=== PATIENT | male | born 1945 | race Caucasian/White ===

== ENCOUNTER → 2016-09-27 | Outpatient (CLI) | payer MEDICARE ==
--- NOTE | 2016-09-27 11:22 | US ---
EXAMINATION TYPE: US thyroid st tissue head/neck DATE OF EXAM: 09/27/2016 COMPARISON: Thyroid ultrasound February 01, 2016. CLINICAL HISTORY: E04.1 Thyroid Nodule. GLAND SIZE: Right Lobe: 7.5 x 3.8 x 3.0 cm Overall Parenchyma: heterogenous Left Lobe: 5.6 x 3.4 x 2.7 cm Overall Parenchyma: heterogeneous Isthmus Thickness: 2.1 cm NODULES RIGHT: # of nodules measured on right: 2 1. 4.9 X 2.7 x 1.8 cm hypoechoic mixed nodule at the lower pole with well-defined margins. This no dule is wider than tall and shows intranodular vascularity. Prior size: 4.6 x 2.2 x 4.6 cm 2. 3.3 X 2.7 x 1.7 cm echogenic mixed nodule at the mid pole with well-defined margins. This nodule is wider than tall and shows no intranodular vascularity. Prior size: 3.0 x 1.9 x 2.4 cm LEFT: # of nodules measured on left: 1 1. 3.0 X 2.6 x 2.3 cm hypoechoic mixed nodule at the lower pole with margins. This nodule is wider than tall and shows no intranodular vascularity. Prior size: 2.7 x 1.7 x 2.5 cm ISTHMUS: # of nodules measured in the isthmus: 0 Bilateral neck scanned, no evidence of lymphadenopathy. Thyroid gland remains enlarged in size and heterogeneous in appearance with large nodules redemonstra roxy bilaterally. No new nodules are seen on today's study. IMPRESSION: Findings consistent with multinodular goiter redemonstrated as there is an enlarged heterogeneous mul tinodular thyroid gland redemonstrated without suspicious new nodules identified.
== END | disposition home or self-care (01) ==
LOC: RADUSWWP 10:03
PROVIDERS: ATTEND Otolaryngology
DX: E04.2 Nontoxic multinodular goiter (principal)
CPT/HCPCS: 76536

== ENCOUNTER → 2017-03-13 | Outpatient (CLI) | payer MEDICARE ==
--- NOTE | 2017-03-13 17:18 | US ---
EXAMINATION TYPE: US thyroid st tissue head/neck DATE OF EXAM: 03/13/2017 COMPARISON: 09/27/2016 CLINICAL HISTORY: E04.1 Thyroid nodule. GLAND SIZE: Right Lobe6.6 x 3.1 x 2.1 cm Overall Parenchyma: heterogenous Left Lobe: 4.7 x 3.2 x 2.2 cm Overall Parenchyma: heterogeneous Isthmus Thickness: 2.1 cm NODULES RIGHT: # of nodules measured on right: 2 1. 3.7 X 5.0 x 2.3 cm hypoechoic mixed nodule at the lower pole with well-defined margins and exten ds over isthmus. This nodule is wider than tall and shows intranodular vascularity. Prior size: 4.9 x 2.7 x 1.8 cm 2. 3.3 X 2.3 x 2.3 cm isoechoic mixed nodule at the mid pole with well-defined margins. This nodule is taller than wide and shows no intranodular vascularity. Prior size: 3.3 x 2.7 x 1.7 cm LEFT: # of nodules measured on left: 1 1. 2.6 X 2.5 x 2.2 cm hypoechoic mixed nodule at the lower pole with well-defined margins. This no dule is taller than wide and shows no intranodular vascularity. Prior size: 3.0 x 2.6 x 2.3 cm ISTHMUS: # of nodules measured in the isthmus: 0 Bilateral neck scanned, no evidence of lymphadenopathy. Bilateral enlarged thyroid lobes. IMPRESSION: There is evidence of multinodular goiter with no adverse change compared to old exam. No dominant thy roid mass.
== END | disposition home or self-care (01) ==
LOC: RADUSWWP 16:40
PROVIDERS: ATTEND Otolaryngology
DX: E04.1 Nontoxic single thyroid nodule (principal)
CPT/HCPCS: 76536

== ENCOUNTER → 2017-09-20 | Outpatient (CLI) | payer MEDICARE ==
--- NOTE | 2017-09-21 08:26 | US ---
EXAMINATION TYPE: US thyroid st tissue head/neck DATE OF EXAM: 09/20/2017 COMPARISON: 03/13/2017 CLINICAL HISTORY: E04.1 THYROID NODULE. GLAND SIZE: Right Lobe: 4.4 x 1.7 x 2.6 cm Overall Parenchyma: heterogenous Left Lobe: 4.9 x 2.5 x 2.1 cm Overall Parenchyma: heterogeneous Isthmus Thickness: 0.4 cm NODULES RIGHT: # of nodules measured on right: 3 1. 5.2 X 1.9 x 2.0 cm echogenic solid nodule at the lower pole with well-defined margins. This nodu le is wider than tall and shows no intranodular vascularity. Prior size: 3.7 x 5.0 x 2.3 cm 2. 2.5 X 3.0 x 3.6 cm echogenic solid nodule at the mid pole with well-defined margins; . This nodu le is wider than tall and shows intranodular vascularity. Prior size: 3.3 x 2.3 x 2.3 cm 3. 2.6 X 1.7 x 2.9 cm echogenic mixed nodule at the mid/lateral pole with well-defined margins. Thi s nodule is wider than tall and shows intranodular vascularity. Prior size: no prior LEFT: # of nodules measured on left: 1 1. 2.1 X 2.8 x 1.9 cm echogenic mixed nodule at the mid pole with well-defined margins; . This nodu le is wider than tall and shows intranodular vascularity. Prior size: 2.6 x 2.5 x 2.2 cm ISTHMUS: # of nodules measured in the isthmus: 0 Bilateral neck scanned, no evidence of lymphadenopathy. IMPRESSION: 1. There is an enlarging nodule at the lower pole right lobe thyroid. Additionally there is a new nod ule within the mid lateral right lobe thyroid.
== END | disposition home or self-care (01) ==
LOC: RADUSWWP 15:19
PROVIDERS: ATTEND Otolaryngology
DX: E04.2 Nontoxic multinodular goiter (principal)
CPT/HCPCS: 76536

== ENCOUNTER 2017-10-29 12:06 | Day surgery (SDC) | payer MEDICARE ==
[2017-10-29 12:55] VITALS: TEMP 98
[2017-10-29 13:02] LABS: INR 1.2 (<1.2); Prothrombin Time 11.7 sec (9.0-12.0)
[2017-10-29 13:40] VITALS: RESP 18
[2017-10-29 14:30] VITALS: BP 144/76; PULSE 76
--- NOTE | 2017-10-29 14:38 | US ---
ULTRASOUND GUIDED FNA THYROID BIOPSY: CLINICAL HISTORY: Right thyroid nodule FINDINGS: The procedure was explained to the patient. The risks, complications, benefits and alternatives were discussed and any questions were answered. Informed consent was obtained. Patient was placed supin e on the ultrasound table and prepped and draped in the usual sterile fashion. Utilizing a 25 gauge needle, five passes were made into the requested right thyroid nodule. Patient was stable throughout the procedure. Pathology is pending. All elements of maximal barrier technique were utilized. IMPRESSION: 1. Successful ultrasound guided FNA thyroid biopsy.
== END 2017-10-29 14:05 | disposition home or self-care (01) ==
LOC: RADPROMAIN 12:06
PROVIDERS: ATTEND Otolaryngology
DX: E04.1 Nontoxic single thyroid nodule (principal)
CPT/HCPCS: 10022; 36415; 76942; 85610; 88173; 88305

== ENCOUNTER → 2017-11-22 | Outpatient (CLI) | payer MEDICARE ==
--- NOTE | 2017-11-22 12:24 | PN ---
PROGRESS NOTE DATE OF SERVICE: 11/22/2017 A 72-year-old gentleman has been followed in Sleep Center for treatment of obstructive and central sleep apnea-hypopnea syndrome. Patient continued to use his CPAP equipment every night and sleeps better with the machine then without machine. [place] Sleepiness Scale today is 10. I checked CPAP unit. It is in automatic regimen 5-20 cm of water. Most of the time pressure is 13.6 cm of water. Apnea-hypopnea index 12.3 with a central apnea index 4.5. Leak is 14.5 L/minute which is acceptable. MEDICATIONS: Atenolol, Lipitor, Coumadin, Pepcid, Symbicort, Singulair, baby aspirin, Nitrostat on p.r.n. basis for chest pain. PHYSICAL EXAM: Patient in no distress. BP 159/89, HR 62, RR 16, height 5, 10-1/2, weight 275, BMI 31.8, temperature 97.7, oxygen saturation at room air 97%. OROPHARYNX: Low position of soft palate. HEART: S1, S2, irregularly, irregular. EXTREMITIES: 1+ ankle edema. Neck Supple, no JVD. Thyroid is not palpable. LUNGS Clear to percussion and to auscultation. Good air exchange. No wheezing or rhonchi. ABDOMEN Soft and nontender. Bowel sounds are present. No organomegaly appreciated. DISTRIBUTION OPERATION SUPERVISOR Awake, alert, and oriented X3. Cranial nerves 2 to 7 intact. There is no fasciculation or atrophy. noted. No focal deficits observed. IMPRESSION: 1. Obstructive and central sleep apnea-hypopnea syndrome. Patient demonstrated 100% compliance with treatment 30/30 nights more than 4 hours every 7.3 hours. He still has some problem with breathing by reading from the machine. 2. Atrial fibrillation. 3. Coronary artery disease, status post stent insertion. 4. Benign prostatic hypertrophy. 5. Asthma. 6. Right knee problems. Patient is preparing for total right knee replacement. PLAN: 1. Repeat CPAP and switching to BiPAP titration if necessary, ST mode for shorter ventilation. 2. Sleep hygiene with regular time for at least 8 hours. 3. No driving if feeling any sleepiness. 4. Continue usage of the CPAP at the present time. Thank you very much for allowing me to participate in management of your patient. Sincerely, Ottoniel Morgan MD, PhD, FAASM Diplomat of [place] [employer] [employer] Hard Hat Diver [facility] [place] [id number] / KAILEE: [id number] /
== END | disposition home or self-care (01) ==
LOC: SLEEP 10:14
PROVIDERS: ATTEND Internal Medicine
DX: G47.33 Obstructive sleep apnea (adult) (pediatric) (principal); G47.31 Primary central sleep apnea; I48.91 Unspecified atrial fibrillation; I25.10 Atherosclerotic heart disease of native coronary artery without angina pectoris; N40.0 Benign prostatic hyperplasia without lower urinary tract symptoms; J45.909 Unspecified asthma, uncomplicated; M25.861 Other specified joint disorders, right knee; Z95.5 Presence of coronary angioplasty implant and graft; Z79.899 Other long term (current) drug therapy; Z79.51 Long term (current) use of inhaled steroids; Z79.01 Long term (current) use of anticoagulants; Z99.89 Dependence on other enabling machines and devices; Z79.82 Long term (current) use of aspirin

== ENCOUNTER → 2018-01-31 | Outpatient (CLI) | payer MEDICARE ==
--- NOTE | 2018-01-31 18:55 | SFUN ---
SLEEP CENTER FOLLOW UP NOTE DATE OF SERVICE: 01/31/2018. HISTORY: A 72-year-old gentleman who has been followed in Sleep Center for treatment of obstructive sleep apnea-hypopnea syndrome. After BiPAP titration, about 1 month ago, patient was started on treatment with BiPAP. This is his first visit on that treatment. The patient likes his new machine, sleeps better, with no sleepiness during the day. [place] Sleepiness Scale is 6. I checked his BiPAP unit. Usage is 100% of the time, more than 4 hours per night. Average amount of sleep 9 hours. Pressure is 12/8 cm of water like it was recommended. Apnea-hypopnea index 7.4. Leak is 11 L/minute which is acceptable. Recently the patient had total right knee replacement. MEDICATIONS: 1. Atenolol. 2. Lipitor. 3. Coumadin. 4. Pepcid. 5. Symbicort. 6. Singulair. 7. Baby aspirin. 8. Nitrostat. PHYSICAL EXAM: Patient is in no distress. BP 124/67, HR 92, RR 16, weight 216, temp 98.2, oxygen saturation room air 96%. HEENT: Oropharynx low position of soft palate. HEART: S1, S2 irregularly irregular. ABDOMEN: Obese. EXTREMITIES: No edema. IMPRESSION: 1. Obstructive sleep apnea-hypopnea syndrome. The patient demonstrated 100% compliance with treatment benefitting from treatment. 2. Obesity. 3. Arterial fibrillation. 4. Status post recent total right knee replacement. 5. Coronary artery disease, status post stent insertion. 6. Benign prostatic hypertrophy. 7. History of asthma. PLAN: 1. BiPAP pressure. I increased but BiPAP pressure to 14/10 cm of water. 2. The patient will continue to use BiPAP equipment every night. 3. Losing weight. 4. Sleep hygiene with regular time in bed for at least 8 hours. 5. No driving if feeling sleepiness. Thank you very much for allowing me to participate in management of your patient. MMODL / IJN: [id number] /
== END | disposition home or self-care (01) ==
LOC: SLEEP 15:58
PROVIDERS: ATTEND Internal Medicine
DX: G47.33 Obstructive sleep apnea (adult) (pediatric) (principal); E66.9 Obesity, unspecified; I48.91 Unspecified atrial fibrillation; I25.10 Atherosclerotic heart disease of native coronary artery without angina pectoris; N40.0 Benign prostatic hyperplasia without lower urinary tract symptoms; J45.909 Unspecified asthma, uncomplicated; Z96.651 Presence of right artificial knee joint; Z79.899 Other long term (current) drug therapy; Z79.01 Long term (current) use of anticoagulants; Z79.82 Long term (current) use of aspirin; Z95.5 Presence of coronary angioplasty implant and graft

== ENCOUNTER → 2018-02-05 | Outpatient (CLI) | payer MEDICARE ==
--- NOTE | 2018-02-05 08:59 | US ---
EXAMINATION TYPE: US thyroid st tissue head/neck DATE OF EXAM: 02/05/2018 COMPARISON: US CLINICAL HISTORY: E04.1 Thyroid Nodules. GLAND SIZE: Right Lobe: 7.5 x 4.5 x 3.0 cm Overall Parenchyma: heterogenous Left Lobe: 5.4 x 2.8 x 2.9 cm Overall Parenchyma: heterogeneous Isthmus Thickness: 0.8 cm NODULES RIGHT: # of nodules measured on right: 2 1. 5.2 X 3.6 x 2.7 cm hypoechoic primarily solid nodule at the lower pole with well-defined margins ; present with microcalcification. This nodule is wider than tall and shows intranodular vascularity . Prior size: 5.2 x 5.0 x 2.3 cm 2. 3.1 X 2.4 x 1.7 cm isoechoic mixed nodule at the mid pole with well-defined margins. This nodule is wider than tall and shows intranodular vascularity. Prior size: 2.6 x 1.7 x 2.9 cm Comment: third solid nodule was not identified, but may be part of consolidation with nodule #1 LEFT: # of nodules measured on left: 1 1. 3.2 X 2.5 x 2.7 cm hypoechoic mixed nodule at the mid/lower pole with well-defined margins. Thi s nodule is taller than wide and shows intranodular vascularity. Prior size: 2.1 x 2.8 x 1.9 cm ISTHMUS: # of nodules measured in the isthmus: 0 Bilateral neck scanned: no evidence of lymphadenopathy. There is redemonstration of heterogeneous enlarged thyroid with bilateral nodules not significantly c hanged in size or appearance from prior accounting for technical differences. No new definitive great er than 1 cm nodule seen. IMPRESSION: Overall stable findings, heterogeneous enlarged thyroid with stable bilateral large nodules, no new s uspicious greater than 1 cm nodules identified.
== END | disposition home or self-care (01) ==
LOC: RADUSWWP 08:00
PROVIDERS: ATTEND Otolaryngology
DX: E04.2 Nontoxic multinodular goiter (principal)
CPT/HCPCS: 76536

== ENCOUNTER → 2018-09-17 | Outpatient (CLI) | payer MEDICARE ==
--- NOTE | 2018-09-17 15:20 | US ---
EXAMINATION TYPE: US thyroid st tissue head/neck DATE OF EXAM: 09/17/2018 COMPARISON: US CLINICAL HISTORY: E04.1 Thyroid nodule. GLAND SIZE: Right Lobe: 7.9 x 5.8 x 3.6 cm Overall Parenchyma: heterogenous Left Lobe: 6.0 x 3.1 x 2.6 cm Overall Parenchyma: heterogeneous Isthmus Thickness: 2.7 cm NODULES RIGHT: # of nodules measured on right: 3 1. 4.1 X 2.5 x 2.8 cm hypoechoic solid nodule at the lower pole with well-defined margins; present with microcalcification centrally. This nodule is wider than tall and shows intranodular vascularity . Prior size: 5.2 x 3.6 x 2.7 cm 2. 3.6 X 4.6 x 2.0 cm isoechoic mixed nodule at the mid pole with well-defined margins. This nodule is wider than tall and shows intranodular vascularity. Prior size: 3.1 x 2.4 x 1.7 cm 3. 0.4 X 0.4 x 0.3 cm hypoechoic mixed nodule at the upper pole with well-defined margins. This nod ule is wider than tall and shows no intranodular vascularity. Prior size: none measured LEFT: # of nodules measured on left: 1. 3.4 X 2.7 x 2.7 cm hypoechoic mixed nodule at the lower pole with well-defined margins. This no dule is wider as is tall and shows intranodular vascularity. Prior size: 3.2 x 2.5 x 2.7 cm ISTHMUS: # of nodules measured in the isthmus: 0 Bilateral neck scanned: no evidence of lymphadenopathy. Enlarged thyroid gland noted bilaterally. IMPRESSION: Interval growth of a previously biopsied right midpole thyroid nodule. Very minimal interval growth o f the most dominant left thyroid nodule and smaller size of the second largest right thyroid nodule i n this multinodular goiter. Consideration could be given to fine-needle aspiration of the dominant le ft thyroid nodule or continued surveillance.
== END | disposition home or self-care (01) ==
LOC: RADUSWWP 14:23
PROVIDERS: ATTEND Otolaryngology
DX: E04.2 Nontoxic multinodular goiter (principal)
CPT/HCPCS: 76536

== ENCOUNTER → 2019-01-13 | Outpatient (CLI) | payer MEDICARE ==
--- NOTE | 2019-01-13 15:39 | US ---
EXAMINATION TYPE: US thyroid st tissue head/neck DATE OF EXAM: 01/13/2019 COMPARISON: 09/17/2018 CLINICAL HISTORY: 73-year-old male E04.1 Thyroid Nodule . No thyroid meds. TECHNIQUE: Multiple sonographic images of the thyroid gland are obtained. FINDINGS: GLAND SIZE: Right Lobe: 7.1 x 3.3 x 3.0 cm Overall Parenchyma: heterogenous Left Lobe: 5.2 x 3.0 x 2.5 cm Overall Parenchyma: heterogeneous Isthmus Thickness: 1.0 cm NODULES RIGHT: # of nodules measured on right: 3 1. 4.1 X 4.0 x 2.2 cm hypoechoic nodule at the lower pole with well-defined margins. This nodule i s wider than tall and shows intranodular vascularity. Prior size: 4.1 x 4.6 x 2.8 cm 2. 3.5 X 2.4 x 2.3 cm mixed nodule at the mid pole with well-defined margins. This nodule is wider than tall and shows intranodular vascularity. Prior size: 3.6 x 2.5 x 2.0 cm 3. 0.5 X 0.3 x 0.3 cm mixed nodule at the upper pole with well-defined margins. This nodule is wide as tall and shows no intranodular vascularity. Prior size: 0.4 x 0.4 x 0.3 cm LEFT: # of nodules measured on left: 1 1. 3.0 X 2.8 x 2.6 cm mixed nodule at the lower pole with well-defined margins. This nodule is wid er than tall and shows intranodular vascularity. Prior size: 3.4 x 2.7 x 2.7 cm ISTHMUS: # of nodules measured in the isthmus: 0 Bilateral neck scanned, no evidence of lymphadenopathy. Bilateral enlarged thyroid lobes. IMPRESSION: Multinodular goiter, dominant nodules on the right measure 4.1 and 3.5 cm, relatively unchanged. Nodu le in the left measures 3.0 cm, stable to slightly smaller.
== END | disposition home or self-care (01) ==
LOC: RADUSWWP 12:01
PROVIDERS: ATTEND Otolaryngology
DX: E04.2 Nontoxic multinodular goiter (principal)
CPT/HCPCS: 76536

== ENCOUNTER → 2019-02-06 | Outpatient (CLI) | payer MEDICARE ==
--- NOTE | 2019-02-06 16:38 | PN ---
PROGRESS NOTE DATE OF SERVICE: 02/06/2019 This patient is a 73-year-old gentleman who has been followed in the sleep center for treatment of obstructive sleep apnea-hypopnea syndrome. The patient continues to use CPAP equipment every night for the whole night without significant problems related to mask fitting, pressure and humidification. During his previous visit, apnea-hypopnea index was 7.4 and I increased pressure in the machine from 12/8 cm of water to 14/10 cm of water. [place] Sleepiness Scale today is 9. I checked the patient's BiPAP unit. Pressure is 14/10 cm of water. Usage is 30/30 nights for more than 4 hours, with average usage 9 hours per night. Leak is 19 L/minute. Apnea-hypopnea index is 9.7, spontaneous cycle 97%. Last night, apnea- hypopnea index was 5.3. The patient's weight has increased from 216 pounds to 222 pounds. MEDICATIONS: 1. Atenolol. 2. Lipitor. 3. Coumadin. 4. Pepcid. 5. Symbicort. 6. Singulair. 7. Nitrostat. 8. Baby aspirin. PHYSICAL EXAMINATION: GENERAL: A pleasant patient in no distress. VITAL SIGNS: BP 154/76, HR 78, RR 16, height 5 feet 10 inches, weight 222, body mass index 31.8. Temperature 98.0, oxygen saturation at room air 94%. HEENT: PERRLA, EOMI. Evaluation of oropharynx showed tongue protrudes midline. Low position of soft palate. Mallampati IV. NECK: Supple. No JVD. Thyroid is not palpable. LUNGS: Clear to percussion and to auscultation. Good air exchange. No wheezing or rhonchi. HEART: S1, S2 irregularly irregular. Diastolic murmur. ABDOMEN: Slightly obese. EXTREMITIES: No clubbing or cyanosis. BAKELITE MOLDER: Awake, alert, and oriented X3. Cranial nerves 2 to 7 intact. There is no fasciculation or atrophy. noted. No focal deficits observed. IMPRESSION: 1. Obstructive sleep apnea-hypopnea syndrome. Patient has demonstrated great compliance with treatment, benefitting from treatment. 2. Still some increasing of apnea-hypopnea index while using BiPAP. 3. Atrial fibrillation. 4. Obesity. 5. Coronary artery disease, status post stent insertion. 6. Benign prostatic hypertrophy. 7. History of asthma. 8. Status post total right knee replacement. PLAN: 1. I will change the regimen of his BiPAP unit to automatic with a maximal inspiratory pressure of 18, minimal expiratory pressure of 10, and pressure support of 4. 2. Patient will continue to use BiPAP equipment every night for the whole night. 3. Losing weight. 4. No driving if feeling any sleepiness. Thank you very much for allowing me to participate in the management of your patient. Sincerely, Ottoniel Morgan MD, PhD, FAASM Diplomat of [employer] Joinery Patternmaker [facility] [place] MMODL / IJN: [id number] /
== END | disposition home or self-care (01) ==
LOC: SLEEP 14:16
PROVIDERS: ATTEND Internal Medicine
DX: G47.33 Obstructive sleep apnea (adult) (pediatric) (principal); I48.91 Unspecified atrial fibrillation; E66.9 Obesity, unspecified; I25.10 Atherosclerotic heart disease of native coronary artery without angina pectoris; N40.0 Benign prostatic hyperplasia without lower urinary tract symptoms; J45.909 Unspecified asthma, uncomplicated; Z68.31 Body mass index [BMI] 31.0-31.9, adult; Z99.89 Dependence on other enabling machines and devices; Z95.5 Presence of coronary angioplasty implant and graft; Z96.651 Presence of right artificial knee joint; Z79.01 Long term (current) use of anticoagulants; Z79.51 Long term (current) use of inhaled steroids; Z79.82 Long term (current) use of aspirin; Z79.899 Other long term (current) drug therapy

== ENCOUNTER → 2019-12-10 | Outpatient (CLI) | payer MEDICARE ==
--- NOTE | 2019-12-10 12:18 | US ---
EXAMINATION TYPE: US thyroid st tissue head/neck DATE OF EXAM: 12/10/2019 COMPARISON: US 01/13/2019 CLINICAL HISTORY: 74-year-old male E04.1 thyroid nodule. TECHNIQUE: Multiple sonographic images of the thyroid gland are obtained. FINDINGS: GLAND SIZE: Right Lobe: 8.0 x 2.3 x 2.6 cm Overall Parenchyma: heterogenous Left Lobe: 6.2 x 3.1 x 3.1 cm Overall Parenchyma: heterogeneous Isthmus Thickness: 0.7 cm NODULES RIGHT: # of nodules measured on right: 2 1. 3.3 X 2.2 x 2.6 cm hypoechoic solid nodule at the mid pole with well-defined margins; . This no dule is wider than tall and shows intranodular vascularity. Prior size: 3.5 x 2.4 x 2.3 cm 2. 5.3 X 3.5 x 4.3 cm hypoechoic solid nodule at the lower pole with poorly defined margins; . This nodule is wider than tall and shows intranodular vascularity. Prior size: 4.1 x 4.0 x 2.2 cm LEFT: # of nodules measured on left: 1 1. 3.8 X 2.8 x 2.8 cm hypoechoic solid nodule at the mid pole with poorly defined margins; . This nodule is wider than tall and shows intranodular vascularity. Prior size: 3.0 x 2.8 x 2.6 cm ISTHMUS: # of nodules measured in the isthmus: 0 Bilateral neck scanned, no evidence of lymphadenopathy. IMPRESSION: Multinodular goiter. Dominant right sided solid nodule is larger at 5.3 x 4.3 cm (versus 4.1 x 4.0 cm , previously). A solitary left-sided nodule slightly larger at 3.8 cm versus 3.0 cm, previously.
== END | disposition home or self-care (01) ==
LOC: RADUSWWP 10:41
PROVIDERS: ATTEND Otolaryngology
DX: E04.2 Nontoxic multinodular goiter (principal)
CPT/HCPCS: 76536

== ENCOUNTER → 2020-02-05 | Outpatient (CLI) | payer MEDICARE ==
--- NOTE | 2020-02-05 15:32 | SFUN ---
SLEEP CENTER FOLLOW UP NOTE DATE OF SERVICE: 02/05/2020 This patient is a 74-year-old gentleman who has been followed in Sleep Center for treatment of obstructive sleep apnea-hypopnea syndrome. The patient continues to use his BiPAP equipment every night. He sleeps well with the machine after I changed the pressure during his previous visit. [place] Sleepiness Scale today is 6, which is normal. I checked the patient's BiPAP unit. Maximal inspiratory pressure is 18, minimal expiratory pressure 8, average pressure 17/13, leak 25 L/minute. Apnea-hypopnea index is 7.2 with central apnea index 2.1, which is less than during his previous visit, when it was 9.7. MEDICATIONS: Lisinopril 40 mg once a day, atorvastatin, warfarin, famotidine, montelukast, Flomax. PHYSICAL EXAMINATION: GENERAL: A pleasant patient in no distress. VITAL SIGNS: BP 145/73, HR 70, RR 15, height 5 feet 10 inches, weight 219, BMI 31.4, temperature 98.1. Oxygen saturation at room air 95%. HEENT: PERRLA, EOMI. Evaluation of oropharynx showed tongue protrudes midline. Extremely low position of soft palate. Mallampati IV. NECK: Supple. No JVD. Thyroid is not palpable. LUNGS: Clear to percussion and to auscultation. Good air exchange. No wheezing or rhonchi. HEART: S1, S2 irregular. ABDOMEN: Soft, nontender. No organomegaly. Bowel sounds are heard in all four quadrants. EXTREMITIES: No clubbing or cyanosis. FLOOR NURSE: Awake, alert, and oriented X3. Cranial nerves 2 to 7 intact. There is no fasciculation or atrophy. noted. No focal deficits observed. IMPRESSION: 1. Obstructive sleep apnea-hypopnea syndrome. Patient demonstrated great compliance with treatment, benefitting from treatment, with a few abnormalities of respiration on BiPAP. 2. Coronary artery disease, status post stent insertion. 3. Atrial fibrillation. 4. Obesity. 5. Benign prostatic hypertrophy. 6. History of asthma. 7. Status post total right knee replacement. 8. Hypertension. PLAN: 1. Patient will continue to use PAP equipment every night for the whole night. 2. Sleep hygiene with regular time in bed for at least 7-1/2 to 8 hours. 3. Precautions related to driving. No driving if feeling sleepiness. 4. I will maintain all necessary prescription for PAP supplies including mask, tube, filters. 5. Watching weight. 6. No driving if feeling sleepiness. 7. Follow-up visit in 6 months or earlier if patient has any problems. 8. I increased maximal inspiratory pressure to 19. Thank you very much for allowing me to participate in the management of your patient. Sincerely, Ottoniel Morgan MD, PhD, FAASM Diplomat of [place] [place] Public Health Administrator [facility] [place] MMODL / IJN: [id number] /
== END | disposition home or self-care (01) ==
LOC: SLEEP 10:19
PROVIDERS: ATTEND Internal Medicine
DX: G47.33 Obstructive sleep apnea (adult) (pediatric) (principal); I25.10 Atherosclerotic heart disease of native coronary artery without angina pectoris; I10 Essential (primary) hypertension; I48.91 Unspecified atrial fibrillation; N40.0 Benign prostatic hyperplasia without lower urinary tract symptoms; E66.9 Obesity, unspecified; Z96.651 Presence of right artificial knee joint; Z95.5 Presence of coronary angioplasty implant and graft; Z79.3 Long term (current) use of hormonal contraceptives; Z79.899 Other long term (current) drug therapy; Z79.01 Long term (current) use of anticoagulants; Z99.89 Dependence on other enabling machines and devices

== ENCOUNTER → 2020-09-09 | Outpatient (CLI) | payer MEDICARE ==
--- NOTE | 2020-09-09 11:28 | SFUN ---
SLEEP CENTER FOLLOW UP NOTE DATE OF SERVICE: 09/09/2020 INTERVAL HISTORY: The 75-year-old gentleman has been followed in Sleep Center for treatment of obstructive sleep apnea-hypopnea syndrome. The patient continues to use his BiPAP equipment every night and feels some discomfort related to the full-face mask in the area of the head gear on the face. Industry Sleepiness Scale today is 10, which is borderline. I checked his BiPAP unit, maximal inspiratory pressure is 19, minimal expiratory pressure 8, pressure support 4, average pressure 16/12. Leak is only 2 L/minute. Apnea- hypopnea index is 3.1, which is totally perfect. Usage 29/30 nights for more than 4 hours. Average usage 9.7 hours per night. The patient using AirFit F20 medium-size mask and heated tube. The patient had exacerbation of asthma when he was in [place] this year and returned back to [place] several days ago. Presently feels well. MEDICATIONS: Lisinopril 40 mg once a day, atorvastatin, warfarin 5 mg on Sunday and and 7.5 mg other days of the week, famotidine, montelukast, Flomax. PHYSICAL EXAMINATION: GENERAL: Patient in no distress. VITAL SIGNS: BP 165/83, HR 79, RR 15, height 5 feet 11 inches, weight 224.4, body mass index 31.2, temperature 98.0, oxygen saturation at room air 95%. HEENT: PERRLA, EOMI, evaluation of oropharynx showed tongue protrudes midline. Extremely low position of soft palate, Mallampati IV. NECK: Supple, no JVD. Thyroid is not palpable. LUNGS: Clear to percussion and to auscultation. Good air exchange. No wheezing or rhonchi. HEART: S1, S2 irregular, diastolic murmur. ABDOMEN: Soft and nontender. Bowel sounds are present. No organomegaly appreciated. Slightly obese. EXTREMITIES: No clubbing or cyanosis. COMMERCIAL REVIEW APPRAISER: Awake, alert, and oriented X3. Cranial nerves 2 to 7 intact. There is no fasciculation or atrophy. noted. No focal deficits observed. IMPRESSION: 1. Obstructive sleep apnea-hypopnea syndrome. Patient demonstrated close to 100% compliance with treatment, benefitting from treatment and normal respiration on BiPAP after I adjusted the pressure during the previous visit. 2. Atrial fibrillation. 3. Obesity. 4. Coronary artery disease, status post stent insertion. 5. Benign prostate hypertrophy. 6. Asthma. 7. Status post total right knee replacement. PLAN: 1. Prescription for CPAP supplies. I will consider to use different style of mask. 2. Patient will continue to use PAP equipment every night for the whole night. 3. Sleep hygiene with regular time in bed for at least 7-1/2 to 8 hours. 4. Precautions related to driving. No driving if feeling sleepiness. 5. I will maintain all necessary prescription for PAP supplies including mask, tube, filters. 6. Watching weight. 7. Follow-up visit in 6 months or earlier if patient has any problems. Thank you very much for allowing me to participate in the management of your patient. Sincerely, Ottoniel Morgan MD, PhD, FAASM Diplomat of [place] [employer] [place] [employer] Senior Brand Manager of [facility] [place] MMODL / LIDIAN: [id number] /
== END ==
LOC: SLEEP 09:45
PROVIDERS: ATTEND Internal Medicine
DX: G47.33 Obstructive sleep apnea (adult) (pediatric) (principal); I48.91 Unspecified atrial fibrillation; E66.9 Obesity, unspecified; I25.10 Atherosclerotic heart disease of native coronary artery without angina pectoris; J45.909 Unspecified asthma, uncomplicated; N40.0 Benign prostatic hyperplasia without lower urinary tract symptoms; Z95.5 Presence of coronary angioplasty implant and graft; Z96.651 Presence of right artificial knee joint; Z68.31 Body mass index [BMI] 31.0-31.9, adult; Z79.01 Long term (current) use of anticoagulants; Z79.899 Other long term (current) drug therapy; Z87.891 Personal history of nicotine dependence; Z88.2 Allergy status to sulfonamides; Z88.8 Allergy status to other drugs, medicaments and biological substances

== ENCOUNTER 2020-10-06 09:17 | Emergency (ER) | payer MEDICARE ==
[2020-10-06 09:29] VITALS: RESP 18; TEMP 97.7
[2020-10-06 10:40] VITALS: PULSE 75
[2020-10-06 10:48] LABS: Albumin 3.8 g/dL (3.5-5.0); Calcium 8.7 mg/dL (8.4-10.2); Potassium 4.6 mmol/L (3.5-5.1); Total Bilirubin 0.5 mg/dL (0.2-1.3); Total Protein 7.9 g/dL (6.3-8.2)
[2020-10-06 10:51] LABS: Basophils % (A) 0 %; Eosinophils # (A) 0.3 k/uL (0-0.7); Eosinophils % (A) 5 %; HCT 44.8 % (39.0-53.0); HGB 14.9 gm/dL (13.0-17.5); Lymphocytes # (A) 1.5 k/uL (1.0-4.8); Lymphocytes % (A) 26 %; MCH 30.8 pg (25.0-35.0); MCHC 33.2 g/dL (31.0-37.0); MCV 92.8 fL (80.0-100.0); Mean Platelet Volume 7.1; Monocytes # (A) 0.4 k/uL (0-1.0); Monocytes % (A) 7 %; Neutrophils # (A) 3.6 k/uL (1.3-7.7); Neutrophils % (A) 61 %; Platelet Count 214 k/uL (150-450); RBC 4.83 m/uL (4.30-5.90); RDW 15.2 % (11.5-15.5)
[2020-10-06 11:02] LABS: Partial Thromboplastin Time 25.6 sec (22.0-30.0); Prothrombin Time 19.9 sec (9.0-12.0)
[2020-10-06 11:24] VITALS: BP 165/90
--- NOTE | 2020-10-06 11:40 | ED ---
GI Bleed HPI - General Chief complaint: GI Bleed Stated complaint: Possible GI Bleed & sore throat Time Seen by Provider: 10/06/20 09:57 Source: patient, RN notes reviewed Mode of arrival: ambulatory Limitations: no limitations - History of Present Illness Initial comments: This is a 75-year-old male who is lying Coumadin who presents with complaints of possible GI bleeding he states his stools have been darker than normal for the past 2 days he denies any chest pain fevers chills nausea vomiting sweats or other symptoms other than a bit of a sore throat. He does say he's been taking antibiotics for the sore throat for 2 days. complaint: other - Related Data Home Medications Medication Instructions Recorded Confirmed Atorvastatin Calcium 80 mg PO HS 08/24/15 10/06/20 Cholecalciferol [Vitamin D3 (25 50 mcg PO DAILY 11/23/15 10/06/20 Mcg = 1000 Iu)] atenoloL [Atenolol] 25 mg PO HS 11/23/15 10/06/20 lisinopriL [Zestril] 40 mg PO DAILY 11/23/15 10/06/20 Budesonide/Formoterol Fumarate 2 puff INHALATION RT-BID 10/06/20 10/06/20 [Symbicort 80-4.5 Mcg Inhaler] Docusate [Colace] 100 mg PO BID 10/06/20 10/06/20 Famotidine 20 mg PO HS 10/06/20 10/06/20 Finasteride [Proscar] 5 mg PO DAILY 10/06/20 10/06/20 Fluticasone Nasal [place] [Flonase 1 spray EA NOSTRIL DAILY@1200 10/06/20 10/06/20 Nasal [place]] Magnesium Oxide [Mag-Ox] 400 mg PO DAILY 10/06/20 10/06/20 Montelukast [Singulair] 10 mg PO HS 10/06/20 10/06/20 Multivit-Min/Folic/Vit K/Lycop 1 tab PO HS 10/06/20 10/06/20 [Men's Multivitamin Tablet] Tamsulosin [Flomax] 0.4 mg PO DAILY 10/06/20 10/06/20 Vitamin C(Unknown Dose) 1 tab PO DAILY 10/06/20 10/06/20 Warfarin [Coumadin] 5 mg PO TUTH@1800 10/06/20 10/06/20 Warfarin [Coumadin] 7.5 mg PO SUMOWEFRSA@1800 10/06/20 10/06/20 rOPINIRole HCL [Requip] 0.5 mg PO HS 10/06/20 10/06/20 Allergies Allergy/AdvReac Type Severity Reaction Status Date / Time sulfamethoxazole Allergy Unknown Verified 10/06/20 11:26 [From Bactrim] Childhood trimethoprim [From Bactrim] Allergy Unknown Verified 10/06/20 11:26 Childhood Review of Systems ROS Statement: Those systems with pertinent positive or pertinent negative responses have been documented in the HPI. ROS Other: All systems not noted in ROS Statement are negative. Past Medical History Past Medical History: Atrial Fibrillation, Asthma, Coronary Artery Disease (CAD), CVA/TIA, Hyperlipidemia, Hypertension, Prostate Disorder, Syncope, Thyroid Disorder Additional Past Medical History / Comment(s): THYROID NODULES-"DR WATCHING IT" has had thyroid biopsy, BEGINNINGS OF CATARACTS, PANCREATITIS CAUSED FROM thyroid MEDICATIONS TAKEN AT THAT TIME, GI Bleed, History of Any Multi-Drug Resistant Organisms: None Reported Past Surgical History: Heart Catheterization With Stent Additional Past Surgical History / Comment(s): x3 cardiac stents,cardioversion for afib,colonoscopy Past Anesthesia/Blood Transfusion Reactions: No Reported Reaction Date of Last Stent Placement:: 01-16-11 Past Psychological History: No Psychological Hx Reported Smoking Status: Former smoker Past Alcohol Use History: Occasional Past Drug Use History: None Reported - Past Family History Father Family Medical History: Myocardial Infarction ([place]) Additional Family Medical History / Comment(s): AT AGE 66 Mother Additional Family Medical History / Comment(s): AT GE 53 -FAMILY THINKS IT WAS AN ANUERYSM BUT NO AUTOPSY WAS DONE. General Exam - General Exam Comments Initial Comments: This is a well-developed well-nourished awake alert oriented 3 male Limitations: no limitations General appearance: alert, in no apparent distress Head exam: Present: atraumatic, normocephalic, normal inspection Eye exam: Present: normal appearance, PERRL, EOMI. Absent: scleral icterus, conjunctival injection, periorbital swelling ENT exam: Present: normal exam, mucous membranes moist, other (Pharyngeal hyperemia no exudate seen.) Neck exam: Present: normal inspection, tenderness (Mild tenderness to the left cervical lymph chain), lymphadenopathy. Absent: meningismus Respiratory exam: Present: normal lung sounds bilaterally. Absent: respiratory distress, wheezes, rales, rhonchi, stridor Cardiovascular Exam: Present: irregular rhythm. Absent: systolic murmur, diastolic murmur, rubs, gallop, clicks GI/Abdominal exam: Present: soft, normal bowel sounds. Absent: distended, tenderness, guarding, rebound, rigid, bruit, pulsatile mass Rectal exam: Present: normal inspection, heme (-) stool (Brown colored stool) Extremities exam: Present: normal inspection, full ROM, normal capillary refill. Absent: tenderness, pedal edema, joint swelling, calf tenderness Back exam: Present: normal inspection Neurological exam: Present: alert, oriented X3, CN II-XII intact Psychiatric exam: Present: normal affect, normal mood Skin exam: Present: warm, dry, intact, normal color. Absent: rash Course Vital Signs 10/06/20 10/06/20 10/06/20 09:27 10:38 11:21 Temperature 97.7 F Pulse Rate 91 75 75 Respiratory 18 18 18 Rate Blood Pressure 190/83 160/84 165/90 O2 Sat by Pulse 95 98 99 Oximetry Medical Decision Making - Medical Decision Making I did discuss the findings with the patient lab work is within reasonably normal limits INR is 2.0 to blood seen in his stool patient will be discharged is a continue his antibiotics 3 times a day the amoxicillin for about one week - Lab Data Result diagrams: 10/06/20 10:13 10/06/20 10:13 Lab Results 10/06/20 10/06/20 10/06/20 Range/Units 10:13 10:13 10:13 WBC 6.0 (3.8-10.6) k/uL RBC 4.83 (4.30-5.90) m/uL Hgb 14.9 (13.0-17.5) gm/dL Hct 44.8 (39.0-53.0) % MCV 92.8 (80.0-100.0) fL MCH 30.8 (25.0-35.0) pg MCHC 33.2 (31.0-37.0) g/dL RDW 15.2 (11.5-15.5) % Plt Count 214 (150-450) k/uL MPV 7.1 Neutrophils % 61 % Lymphocytes % 26 % Monocytes % 7 % Eosinophils % 5 % Basophils % 0 % Neutrophils # 3.6 (1.3-7.7) k/uL Lymphocytes # 1.5 (1.0-4.8) k/uL Monocytes # 0.4 (0-1.0) k/uL Eosinophils # 0.3 (0-0.7) k/uL Basophils # 0.0 (0-0.2) k/uL PT 19.9 H (9.0-12.0) sec INR 2.0 H (<1.2) APTT 25.6 (22.0-30.0) sec Sodium 138 (137-145) mmol/L Potassium 4.6 (3.5-5.1) mmol/L Chloride 109 H (98-107) mmol/L Carbon Dioxide 22 (22-30) mmol/L Anion Gap 7 mmol/L BUN 25 H (9-20) mg/dL Creatinine 1.09 (0.66-1.25) mg/dL Est GFR (CKD-EPI)AfAm 76 (>60 ml/min/1.73 sqM) Est GFR (CKD-EPI)NonAf 66 (>60 ml/min/1.73 sqM) Glucose 120 H (74-99) mg/dL Calcium 8.7 (8.4-10.2) mg/dL Total Bilirubin 0.5 (0.2-1.3) mg/dL AST 33 (17-59) U/L ALT 34 (4-49) U/L Alkaline Phosphatase 61 (38-126) U/L Creatine Kinase 73 (55-170) U/L Troponin I (0.000-0.034) ng/mL Total Protein 7.9 (6.3-8.2) g/dL Albumin 3.8 (3.5-5.0) g/dL Stool Occult Blood (Negative) 10/06/20 10/06/20 Range/Units 10:13 10:30 WBC (3.8-10.6) k/uL RBC (4.30-5.90) m/uL Hgb (13.0-17.5) gm/dL Hct (39.0-53.0) % MCV (80.0-100.0) fL MCH (25.0-35.0) pg MCHC (31.0-37.0) g/dL RDW (11.5-15.5) % Plt Count (150-450) k/uL MPV Neutrophils % % Lymphocytes % % Monocytes % % Eosinophils % % Basophils % % Neutrophils # (1.3-7.7) k/uL Lymphocytes # (1.0-4.8) k/uL Monocytes # (0-1.0) k/uL Eosinophils # (0-0.7) k/uL Basophils # (0-0.2) k/uL PT (9.0-12.0) sec INR (<1.2) APTT (22.0-30.0) sec Sodium (137-145) mmol/L Potassium (3.5-5.1) mmol/L Chloride (98-107) mmol/L Carbon Dioxide (22-30) mmol/L Anion Gap mmol/L BUN (9-20) mg/dL Creatinine (0.66-1.25) mg/dL Est GFR (CKD-EPI)AfAm (>60 ml/min/1.73 sqM) Est GFR (CKD-EPI)NonAf (>60 ml/min/1.73 sqM) Glucose (74-99) mg/dL Calcium (8.4-10.2) mg/dL Total Bilirubin (0.2-1.3) mg/dL AST (17-59) U/L ALT (4-49) U/L Alkaline Phosphatase (38-126) U/L Creatine Kinase (55-170) U/L Troponin I <0.012 (0.000-0.034) ng/mL Total Protein (6.3-8.2) g/dL Albumin (3.5-5.0) g/dL Stool Occult Blood Negative (Negative) - EKG Data -: EKG Interpreted by Me EKG shows normal: sinus rhythm EKG Comments: Atrial fibrillation rate is 77 QRS 94 QT since QTC 390/450 Disposition Clinical Impression: Anticoagulated on Coumadin, Chronic atrial fibrillation, Pharyngitis Disposition: HOME SELF-CARE Condition: Good Instructions (If sedation given, give patient instructions): Warfarin (By mouth), Pharyngitis (ED), Strep Throat (DC) Is patient prescribed a controlled substance at d/c from ED?: No Referrals: Ela Campoverde MD [Primary Care Provider] - 1-2 days
== END 2020-10-06 11:48 | disposition home or self-care (01) ==
LOC: EC 09:17
DX: J02.9 Acute pharyngitis, unspecified (principal); I48.20 Chronic atrial fibrillation, unspecified; R19.5 Other fecal abnormalities; J45.909 Unspecified asthma, uncomplicated; I25.10 Atherosclerotic heart disease of native coronary artery without angina pectoris; I10 Essential (primary) hypertension; E78.5 Hyperlipidemia, unspecified; Z86.73 Personal history of transient ischemic attack (TIA), and cerebral infarction without residual deficits; Z87.891 Personal history of nicotine dependence; Z79.01 Long term (current) use of anticoagulants; Z79.51 Long term (current) use of inhaled steroids; Z79.899 Other long term (current) drug therapy; Z95.5 Presence of coronary angioplasty implant and graft
CPT/HCPCS: 36415; 80053; 82272; 82550; 84484; 85025; 85610; 85730; 93005; 99283

== ENCOUNTER → 2020-10-07 | Outpatient (CLI) | payer MEDICARE ==
--- NOTE | 2020-10-07 08:28 | US ---
EXAMINATION TYPE: US thyroid st tissue head/neck DATE OF EXAM: 10/07/2020 COMPARISON: US 2019 CLINICAL HISTORY: E04.1 thyroid nodule. Follow up thyroid nodules, history of FNA GLAND SIZE: Right Lobe: 7.7 x 2.4 x 3.9 cm Overall Parenchyma: heterogenous Left Lobe: 6.4 x 2.5 x 3.1 cm Overall Parenchyma: heterogeneous Isthmus Thickness: 0.7 cm NODULES RIGHT: # of nodules measured on right: 2 1. 3.3 X 1.8 x 2.7 cm, upper mid, solid or almost completely solid, hypoechoic nodule, which is wid er than tall, with smooth margins, without echogenic foci. Prior size: 3.3 x 2.2 x 2.6 cm 2. 5.1 X 2.9 x 4.2 cm, lower mid, solid or almost completely solid, hypoechoic nodule, which is wid er than tall, with smooth margins, without echogenic foci. Prior size: 5.3 x 3.5 x 4.3 cm LEFT: # of nodules measured on left: 1 1. 3.2 X 2.9 x 2.8 cm, lower mid, solid or almost completely solid, hypoechoic nodule, which is charanjit ler than wide, with smooth margins, without echogenic foci. Prior size: 3.8 x 2.8 x 2.8 cm ISTHMUS: # of nodules measured in the isthmus: 0 Bilateral neck scanned, no evidence of lymphadenopathy. Nodules appears stable. IMPRESSION: 1. Nodules are moderately suspicious. Fine needle aspiration recommended at this has not been perform ed. 2017 ACR TI-RADS LEVEL: TR-RADS 4 - Moderately Suspicious: Follow if > 1 cm, FNA if > 1.5 cm *Highest TI-RADS level nodule reported
== END | disposition home or self-care (01) ==
LOC: RADUSWWP 07:13
PROVIDERS: ATTEND Otolaryngology
DX: E04.2 Nontoxic multinodular goiter (principal)
CPT/HCPCS: 76536

== ENCOUNTER 2020-10-14 07:28 | Day surgery (SDC) | payer MEDICARE ==
[2020-10-12 10:54] VITALS: BMI 28.8
[2020-10-14 08:17] VITALS: TEMP 98.2
[2020-10-14] MEDS ORDERED: SODIUM CHLORIDE 0.9% 500 ML 500 ML IV ONE (08:19)
[2020-10-14] MEDS ORDERED: fentaNYL (PF) 50 MCG/ML 2 ML AMP ONE (08:39)
[2020-10-14 08:52] LABS: INR 2.7 (<1.2)
[2020-10-14] MEDS: BENZOCAINE SPRAY 1 CAN MUCOUS MEM ONE ×2 (08:55→09:09)
[2020-10-14] MEDS: MIDAZOLAM 2 MG/2 ML VIAL IV ONE ×2 (09:09→09:12)
[2020-10-14] MEDS: fentaNYL (PF) 50 MCG/ML 2 ML AMP IV ONE ×2 (09:09→09:11)
[2020-10-14] MEDS ORDERED: hydrALAZINE HCL 20 MG/ML 1 ML VIAL ONE (09:31)
[2020-10-14] MEDS ORDERED: hydrALAZINE HCL 20 MG/ML 1 ML VIAL IV ONE (09:34)
[2020-10-14 10:28] VITALS: PULSE 97; RESP 16
[2020-10-14 10:29] VITALS: BP 175/92
[2020-10-14] MEDS ORDERED: SODIUM CHLORIDE 0.9% 1,000 ML IV SCH (10:30)
--- NOTE | 2020-10-14 14:37 | P.TEE ---
Indications for Procedure(s): Assess aortic regurgitation and Mitral regurgitation Date of Procedure: 10/14/20 Preoperative Diagnosis: Nontraumatic mitral regurgitation and aortic regurgitation Postoperative Diagnosis: The same Description of Procedure(s): INDICATION: Shortness of breath, aortic regurgitation and mitral regurgitation CONSENT: Informed verbal consent was obtained from the patient PROCEDURE: Patient was brought to the lab in a fasting state. Patient was prepped and draped in the usual fashion. The throat was sprayed with Hurricaine. Patient was given IV Versed and fentanyl for sedation. Patient got 2mg of Versed and 37.5 g of fentanyl. A lubricated Omni probe was introduced into the oropharynx and was advanced into the esophagus and multiple views were obtained both from the esophagus and stomach. Patient tolerated the procedure. Pulse and continuous-wave and color Doppler studies were done. Saline contrast bubble injection was performed FINDINGS:. The aortic valve showed mild sclerosis with normal opening ex cursion. There is eccentric aortic regurgitation which appeared to be 3-4+. The aortic root diameter is normal. The mitral valve showed thickening. There is a mitral regurgitation which seemed to be slightly eccentric, directed laterally. It appears to be about 3+ mitral regurgitation. The PISA value is 0.7-1. The left atrium is enlarged. There is no clot in the left atrial appendage. The interatrial septum is intact. Saline contrast bubble injection did not show any shunting. LV function is mildly impaired. Patient was in atrial fibrillation IMPRESSION: #1. About 3-4+ aortic regurgitation. #2. 3+ mitral regurgitation #3. Mild impaired LV function. #4. Left atrial enlargement. #5. Aorta showed moderate plaque PLAN: Proceed with cardiac catheterization. May consider mitral and aortic valve replacement/repair.
== END 2020-10-14 11:08 | disposition home or self-care (01) ==
LOC: CATHCVL 07:28
PROVIDERS: ATTEND Internal Medicine Cardiovascular Disease
DX: I34.0 Nonrheumatic mitral (valve) insufficiency (principal); I35.1 Nonrheumatic aortic (valve) insufficiency; Z20.822 Contact with and (suspected) exposure to COVID-19; I70.0 Atherosclerosis of aorta; I25.10 Atherosclerotic heart disease of native coronary artery without angina pectoris; I48.21 Permanent atrial fibrillation; I42.9 Cardiomyopathy, unspecified; Z79.01 Long term (current) use of anticoagulants; J45.909 Unspecified asthma, uncomplicated; I10 Essential (primary) hypertension; E78.5 Hyperlipidemia, unspecified; Z79.899 Other long term (current) drug therapy; Z88.2 Allergy status to sulfonamides; Z88.8 Allergy status to other drugs, medicaments and biological substances; E78.00 Pure hypercholesterolemia, unspecified; Z95.5 Presence of coronary angioplasty implant and graft
CPT/HCPCS: 93312; 93320; 93325; 85610; 87635; J2250; J0360; J3010

== ENCOUNTER 2020-10-27 08:42 | Day surgery (SDC) | payer MEDICARE ==
[2020-10-22 15:46] VITALS: BMI 30.7
[~2020-10-27 08:42] MED LIST: ALPRAZolam 0.25 MG TAB PO PRN; ALPRAZolam 0.5 MG TAB PO PRN; ASPIRIN 325 MG TAB PO STA; ATORVASTATIN 80 MG TAB PO STA; HEPARIN SODIUM,PORCINE 10,000 UNIT in SODIUM CHLORIDE 0.9% 1,000 ML IRRIGATION PRN; HEPARIN SODIUM,PORCINE 2,500 UNIT in SODIUM CHLORIDE 0.9% 250 ML IRRIGATION PRN; NITROGLYCERIN SL TABS 0.4 MG TAB SUBLINGUAL PRN; SODIUM CHLORIDE 0.9% 1,000 ML in EMPTY BAG 1 BAG IV ONE
[2020-10-27] MEDS ORDERED: SODIUM CHLORIDE 0.9% 1,000 ML IV ONE (09:29)
[2020-10-27 10:09] LABS: INR 1.3 (<1.2); Prothrombin Time 13.1 sec (9.0-12.0)
[2020-10-27 10:16] VITALS: RESP 16; TEMP 99.3
[2020-10-27] MEDS ORDERED: LIDOCAINE 1% INJ 10MG/ML (20 ML MDV) ONE (10:23)
[2020-10-27] MEDS ORDERED: VERAPAMIL 2.5 MG/ML 2 ML AMP ONE (10:23)
[2020-10-27] MEDS ORDERED: fentaNYL (PF) 50 MCG/ML 2 ML AMP ONE (10:39)
[2020-10-27] MEDS ORDERED: MIDAZOLAM 2 MG/2 ML VIAL IVP ONE (10:44)
[2020-10-27] MEDS ORDERED: fentaNYL (PF) 50 MCG/ML 2 ML AMP IVP ONE (10:44)
[2020-10-27] MEDS ORDERED: LIDOCAINE 1% INJ 10MG/ML (20 ML MDV) SQ ONE (10:45)
[2020-10-27 11:19] LABS: O2 Sat Blood Gas 93.2 %
[2020-10-27 11:20] LABS: O2 Sat Blood Gas 61.7 %
[2020-10-27 11:21] LABS: O2 Sat Blood Gas 64.8 %
[2020-10-27] MEDS ORDERED: IOPAMIDOL-370 125ML BTL INJ ONE (11:26)
[2020-10-27] MEDS ORDERED: IOPAMIDOL-370 100ML BTL INJ ONE (11:27)
[2020-10-27] MEDS ORDERED: RX INFO: IV CONTRAST WAS GIVEN 1 EACH MISC MISCELLANE PRN (11:32)
[2020-10-27] MEDS ORDERED: SODIUM CHLORIDE 0.9% 1,000 ML IV SCH (11:45)
--- NOTE | 2020-10-27 15:28 | P.GSCN ---
History of Present Illness Consult date: 10/27/20 Reason for Consult: Aortic and mitral regurgitation Requesting physician: Vicki Montoya History of present illness: This is a 75-year-old gentleman who follows on an outpatient basis with Dr. Campoverde for primary care. He has a previous medical history of coronary artery disease status post stenting to the LAD and RCA, chronic atrial fibrillation on Coumadin for anticoagulation, chronic congestive heart failure NYHA class II, questionable TIA many years ago, hypertension, hyperlipidemia, obstructive sleep apnea with home CPAP use, asthma, previous tobacco dependence, pancreatitis, GI bleed presumably from aspirin, and urinary retention post-right knee replacement surgery. He has had a several month complaint of shortness of breath, frequent cough, and congestion which he initially he attributed to his asthma. He did see his yardage estimator, medication changes were made, he did have some improvement but continued to have frequent cough and occasional shortness of breath. Therefore he sought medical consultation with Dr. Dr. Montoya. He was recommended to undergo CORINNE and heart catheterization for further diagnosis. CORINNE demonstrated 3-4+ aortic insufficiency, 3+ mitral regurgitation, and mildly impaired left ventricular systolic function. He presented to [facility] today for elective heart catheterization demonstrating patent RCA and mid LAD stents. Due to findings on his CORINNE consultation was placed to cardiothoracic surgery for recommendations. Review of Systems Review of systems was completed and was negative except as noted - Respiratory Reports as per HPI, Reports congestion, Reports cough, Reports dyspnea Past Medical History Past Medical History: Atrial Fibrillation, Asthma, Coronary Artery Disease (CAD), CVA/TIA, Hyperlipidemia, Hypertension, Prostate Disorder, Syncope, Thyroid Disorder Additional Past Medical History / Comment(s): THYROID NODULES-"DR WATCHING IT" has had thyroid biopsy, CATARACTS, PANCREATITIS CAUSED FROM thyroid MEDICATIONS TAKEN AT THAT TIME, GI Bleed,SEE DR MONTOYA'S HISTORY AND PHYSICAL FOR CARDIAC HISTORY POSSIBLE TIA, BPH History of Any Multi-Drug Resistant Organisms: None Reported Past Surgical History: Heart Catheterization With Stent, Joint Replacement Additional Past Surgical History / Comment(s): x3 cardiac stents,cardioversion for afib,colonoscopy, CORINNE, TOTAL RIGHT KNEE Past Anesthesia/Blood Transfusion Reactions: No Reported Reaction Date of Last Stent Placement:: 01-16-11 Past Psychological History: No Psychological Hx Reported Smoking Status: Former smoker Past Alcohol Use History: Occasional Additional Past Alcohol Use History / Comment(s): Reports one beer per week Past Drug Use History: None Reported - Past Family History Father Family Medical History: Myocardial Infarction ([place]) Additional Family Medical History / Comment(s): AT AGE 66 Mother Family Medical History: No Reported History Additional Family Medical History / Comment(s): AT GE 53 -FAMILY THINKS IT WAS AN ANUERYSM BUT NO AUTOPSY WAS DONE. Medications and Allergies Home Medications Medication Instructions Recorded Confirmed Type Atorvastatin Calcium 80 mg PO HS 08/24/15 10/27/20 History Cholecalciferol [Vitamin D3 (25 50 mcg PO DAILY 11/23/15 10/27/20 History Mcg = 1000 Iu)] atenoloL [Atenolol] 25 mg PO DAILY 11/23/15 10/27/20 History lisinopriL [Zestril] 40 mg PO DAILY 11/23/15 10/27/20 History Budesonide/Formoterol Fumarate 2 puff INHALATION RT-BID 10/06/20 10/27/20 History [Symbicort 80-4.5 Mcg Inhaler] Famotidine 20 mg PO HS 10/06/20 10/27/20 History Finasteride [Proscar] 5 mg PO DAILY 10/06/20 10/27/20 History Fluticasone Nasal [place] [Flonase 1 spray EA NOSTRIL DAILY@1200 10/06/20 10/27/20 History Nasal [place]] Magnesium Oxide [Mag-Ox] 400 mg PO DAILY 10/06/20 10/27/20 History Montelukast [Singulair] 10 mg PO HS 10/06/20 10/27/20 History Multivit-Min/Folic/Vit K/Lycop 1 tab PO HS 10/06/20 10/27/20 History [Men's Multivitamin Tablet] Tamsulosin [Flomax] 0.4 mg PO DAILY 10/06/20 10/27/20 History Vitamin C(Unknown Dose) 1 tab PO DAILY 10/06/20 10/27/20 History Warfarin [Coumadin] 5 mg PO TUTH@1800 10/06/20 10/27/20 History Warfarin [Coumadin] 7.5 mg PO SUMOWEFRSA@1800 10/06/20 10/27/20 History rOPINIRole HCL [Requip] 0.5 mg PO HS 10/06/20 10/27/20 History Cetirizine HCl [Zyrtec] 10 mg PO DAILY 10/12/20 10/27/20 History Azelastine HCl [Astepro] 1 spray NASAL BID 10/22/20 10/27/20 History Nitroglycerin Sl Tabs [Nitrostat] 0.4 mg SUBLINGUAL Q5M PRN tab 10/27/20 Rx Allergies Allergy/AdvReac Type Severity Reaction Status Date / Time sulfamethoxazole Allergy Rash/Hives Verified 10/27/20 09:32 [From Bactrim] trimethoprim [From Bactrim] Allergy Rash/Hives Verified 10/27/20 09:32 Surgical - Exam Vital Signs Temp Pulse Resp BP Pulse Ox 99.3 F 98 16 183/92 97 10/27/20 09:58 10/27/20 09:58 10/27/20 09:58 10/27/20 09:58 10/27/20 09:58 CONSTITUTIONAL: Awake and alert, appears comfortable, cooperative, well- developed, well-nourished, no pain, no acute distress EYES: Pupils equal, round, reactive to light, normal ocular movement ENT: Moist mucous membranes without oral lesions present NECK: No masses, no bruits, trachea midline RESPIRATORY: Lungs sounds clear to auscultation bilaterally. Respirations even, nonlabored. Currently on room air with oxygen saturation 97%. Strong cough. No chest wall deformities. No clubbing or cyanosis present CARDIOVASCULAR: S1, S2 present, diastolic murmur present. Irregular rate and rhythm, controlled atrial fibrillation on telemetry. Palpable peripheral pulses bilaterally. No edema present. No calf pain or tenderness noted. No significant lower extremity varicosities noted. GASTROINTESTINAL: Abdomen soft, nontender, nondistended without masses or organomegaly noted. There is no rebound or guarding present. Active bowel sounds present 4 quadrants. GENITOURINARY: Deferred INTEGUMENTARY: Skin is warm and dry with evidence of good perfusion. NEUROLOGIC: Cranial nerves II through XII intact, normal coordination, no obvious motor or sensory deficits, speech is normal MUSKULOSKELETAL: Able to move all extremities, strength equal bilaterally, normal posture PSYCHIATRIC: Alert and oriented to person place and time, appropriate affect, intact judgment and insight Results - Labs Abnormal Lab Results - Last 24 Hours (Table) 06/30/21 Range/Units 09:32 PT 13.1 H (9.0-12.0) sec INR 1.3 H (<1.2) - Imaging Additional studies: Heart catheterization films reviewed Assessment and Plan Assessment: 1. Aortic insufficiency, mitral regurgitation 2. Coronary artery disease status post stenting to the LAD and RCA 3. Chronic atrial fibrillation on Coumadin for anticoagulation 4. Chronic congestive heart failure NYHA class II 5. Questionable TIA many years ago 6. Hypertension 7. Hyperlipidemia 8. Obstructive sleep apnea with home CPAP use 9. Asthma 10. Previous tobacco dependence 11. Pancreatitis 12. GI bleed presumably from aspirin combined with Coumadin 13. Urinary retention post-right knee replacement surgery Plan: The patient was seen and examined in the extended stay unit. Chart/diagnostics reviewed. The usual perioperative course of open heart surgery was discussed in detail the patient and his , risks and benefits were reviewed, all questions were answered. The patient was agreeable to surgery. Preoperative testing was initiated. Patient will need dental clearance and this was discussed with the patient and his . Once preoperative testing has been completed STS risk score will be calculated and discussed with the patient. Case will be discussed in detail with Dr. Torrez. Recommend continuing to maximize medical therapy. More recommendations to follow. Thank you Dr. Montoya for this consult. We look forward to working with you in the care of your patient. Time with Patient: Greater than 30
--- NOTE | 2020-10-27 16:44 | US ---
EXAMINATION TYPE: US carotid duplex BILAT DATE OF EXAM: 10/27/2020 COMPARISON: US 02/18/2014 CLINICAL HISTORY: preop cardiac surgery. Pre-Op CABG EXAM MEASUREMENTS: RIGHT: Peak Systolic Velocity (PSV) cm/sec ----- Right CCA: 82.5 ----- Right ICA: 103 ----- Right ECA: 109 ICA/CCA ratio: 1.2 RIGHT: End Diastole cm/sec ----- Right CCA: 0.0 ----- Right ICA: 5.9 ----- Right ECA: 0.0 LEFT: Peak Systolic Velocity (PSV) cm/sec ----- Left CCA: 78.6 ----- Left ICA: 124 ----- Left ECA: 118 ICA/CCA ratio: 1.6 LEFT: End Diastole cm/sec ----- Left CCA: 0.0 ----- Left ICA: 16.9 ----- Left ECA: 0.0 VERTEBRALS (direction of flow): Right Vertebral: Antegrade Left Vertebral: Antegrade Rhythm: Arrhythmia, pt has known A-fib Mild atherosclerotic plaque at the left common carotid artery bifurcation. IMPRESSION: 1. No evidence of hemodynamically significant stenosis. Mild atherosclerotic plaque at the left commo n carotid artery bifurcation. Criteria for Assigning % of Stenosis / Diameter reduction (Estimation based on the indirect measurements of the internal carotid artery velocities (ICA PSV). 1. Normal (no stenosis)=ICA PSV < 125 cm/s: ratio < 2.0: ICA EDV<40 cm/s. 2. Less than 50% stenosis=ICA PSV < 125 cm/s: ratio < 2.0: ICA EDV<40 cm/s. 3. 50 to 69% stenosis=ICA PSV of 125 to 230 cm/s: ration 2.0 ? 4.0: ICA EDV 40-100 cm/s. 4. Greater than 70% stenosis to near occlusion= ICA PSV > 230 cm/s: ratio > 4.0: ICA EDV > 100 cm/s. 5. Near occlusion= ICA PSV velocities may be low or undetectable: variable ratio and ICA EDV. 6. Total occlusion=unable to detect flow.
--- NOTE | 2020-10-27 16:57 | XR ---
EXAMINATION TYPE: XR chest 2V DATE OF EXAM: 10/27/2020 COMPARISON: 08/24/2015 INDICATION: Presurgical evaluation TECHNIQUE: Frontal and lateral views of the chest are obtained. FINDINGS: The heart size is enlarged. The pulmonary vasculature is normal. The lungs are clear. There is some hyperinflation flattening the diaphragms. Correlate for COPD. IMPRESSION: 1. Cardiomegaly
[2020-10-27 17:41] LABS: HCT 42.4 % (39.0-53.0); HGB 14.1 gm/dL (13.0-17.5); MCH 30.7 pg (25.0-35.0); MCHC 33.3 g/dL (31.0-37.0); Mean Platelet Volume 6.4; Platelet Count 189 k/uL (150-450); RBC 4.61 m/uL (4.30-5.90); RDW 15.1 % (11.5-15.5); WBC 5.5 k/uL (3.8-10.6)
[2020-10-27 17:50] LABS: Calcium 8.6 mg/dL (8.4-10.2); Potassium 4.3 mmol/L (3.5-5.1)
[2020-10-27 20:49] VITALS: BP 147/69; PULSE 82
[2020-10-27 21:21] LABS: Appearance,Urine Clear (Clear); Bilirubin,Urine Negative (Negative); Blood,Urine Negative (Negative); Color,Urine Light Yellow; Glucose,Urine (UA) Negative (Negative); Ketones,Urine Negative (Negative); Leukocyte Esterase,Urine Negative (Negative); Nitrite,Urine Negative (Negative); PH, Urine 6.5 (5.0-8.0); Protein,Urine Negative (Negative); Specific Gravity,Urine 1.017 (1.001-1.035); Urobilinogen,Urine <2.0 mg/dL (<2.0)
[2020-10-28 00:14] LABS: Hemoglobin A1C 6.1 % (4.0-6.0)
[2020-10-28 03:32] LABS: Hepatitis A Antibody IgM Non-Reactive (Non-Reactive); Hepatitis B Core IgM Non-Reactive (Non-Reactive); Hepatitis B Surface Antigen Non-Reactive (Non-Reactive); Hepatitis C IgG Antibody Non-Reactive (Non-Reactive)
--- NOTE | 2020-10-28 12:02 | P.CARDCATH ---
Date of Procedure: 10/27/20 Preoperative Diagnosis: Severe aortic regurgitation and moderate mitral regurgitation and known coronary artery disease Postoperative Diagnosis: Severe aortic regurgitation, stable coronary artery disease. Moderate mitral regurgitation by echo Procedure(s) Performed: Left heart catheterization with aortic root injection, right heart catheterization Description of Procedure: HISTORY: This is 75-year-old gentleman with history of ischemic or disease with a previous stent placement of the LAD and also RCA who has been experiencing exertional shortness of breath. Echo cardiogram showed evidence of severe aortic regurgitation. A CORINNE examination confirmed presence of severe aortic regurgitation and moderate mitral regurgitation. Patient is advised to have a right and left heart catheterization for definitive diagnosis. CONSENT:I have discussed the risks, benefits and alternative therapies for the above-mentioned procedure and for both sedation/analgesia as well as necessary blood product administration, if indicated, as they pertain to this patient. The patient has indicated understanding and acceptance of the risks and procedures discussed. [] PROCEDURE: Patient was brought to the lab in a fasting state. Patient was given some IV sedation. Right heart catheterization was performed from the right femoral approach using a Fraser-Hussain catheter. The right groin is infiltrated with lidocaine and right femoral vein was entered using Seldinger technique. Hemostasis was obtained with manual compression. Left heart catheterization: The right groin is infiltrated with lidocaine and right femoral artery was entered using Seldinger technique. A 6-B[place] catheter was left in place and selective coronary arteriography and left ventriculography was performed. Patient tolerated the procedure well. Femoral angiogram was performed and Angio-Seal was applied for hemostasis. No immediate complications were noted and patient was transferred to [facility] in a stable condition Conscious Sedation: Versed 1mg Fentanyl 25 g Duration 44minutes HEMODYNAMICS: Right heart catheterization: The right atrial pressure was a 8/6. Right ventricular pressure was 47/9, pulmonary artery pressure was 50/19 with a mean pressure of 30. Pulmonary wedge pressure is suboptimal appears to be around 30. Cardiac output by thermodilution method was 5.16 and by Chantel method 5.2 to. Oxygen saturations in the right atrium was 64%, pulmonary artery 62% and femoral artery was 93%. Left heart catheterization: The aortic pressure is 163/84. The left ventricle pressure was 165/4 SELECTIVE CORONARY ARTERIOGRAPHY: LEFT MAIN: Normal length and free of any significant occlusive disease THE LEFT ANTERIOR DESCENDING CORONARY ARTERY:. Moderate caliber vessel with mild diffuse disease with patent stent in the proximal portion THE LEFT CIRCUMFLEX AND IS CORONARY ARTERY:. Good caliber vessel free of any significant focal lesions THE RIGHT CORONARY ARTERY:. Good caliber vessel with patent stent with a diffuse plaque but no critical lesions. Aortic root injection: This revealed 4+ aortic regurgitation with complete opacification of the left ventricle LEFT VENTRICULOGRAPHY: Not performed FINAL IMPRESSION: #1. 4+ aortic regurgitation. #2. 2-3+ mitral regurgitation by echo #3. Stable coronary artery disease with patent stents in the LAD and right coronary artery PLAN: Aortic valve replacement and possible mitral valve repair PROGNOSIS: Guarded
== END 2020-10-27 17:37 | disposition home or self-care (01) ==
LOC: CATHCVL 08:42
PROVIDERS: ATTEND Internal Medicine Cardiovascular Disease
DX: I08.3 Combined rheumatic disorders of mitral, aortic and tricuspid valves (principal); E78.5 Hyperlipidemia, unspecified; I11.0 Hypertensive heart disease with heart failure; I25.10 Atherosclerotic heart disease of native coronary artery without angina pectoris; Z95.5 Presence of coronary angioplasty implant and graft; I48.21 Permanent atrial fibrillation; Z72.0 Tobacco use; Z20.822 Contact with and (suspected) exposure to COVID-19; Z87.891 Personal history of nicotine dependence; E78.00 Pure hypercholesterolemia, unspecified; G47.33 Obstructive sleep apnea (adult) (pediatric); J45.909 Unspecified asthma, uncomplicated; Z87.19 Personal history of other diseases of the digestive system; Z87.440 Personal history of urinary (tract) infections; Z79.01 Long term (current) use of anticoagulants; Z79.899 Other long term (current) drug therapy
CPT/HCPCS: 93460; 80048; 80074; 85018; 82810; 83735; 85027; 85610; 81003; 87070; 83036; 87635; 71046; 93880; C1769 ×5; C1760; C1894 ×2; J2250; J2001; J3010; Q9967 ×2

== ENCOUNTER → 2021-09-21 | Outpatient (CLI) | payer MEDICARE ==
--- NOTE | 2021-09-22 21:12 | SFUN ---
SLEEP CENTER FOLLOW UP NOTE DATE OF SERVICE: 09/21/2021. 76-year-old gentleman has been followed in Sleep Center for treatment of obstructive sleep apnea-hypopnea syndrome. Patient continued to use his BiPAP equipment every night, getting PAP supplies in time. No snoring. [place] Sleepiness Scale is 6, which is in normal range and less than during the previous visit when it was 10. I checked BiPAP unit. Maximal inspiratory pressure 19, minimal expiratory pressure 8, pressure support 4, average pressure 14.1/ 10.1, usage is 30/30 nights for more than 4 hours. Average 9.3 hours per night. Leak is 0 L/minute. Apnea-hypopnea index is 1.5 which is perfect. MEDICATIONS: Lisinopril 40 mg once a day, atorvastatin, famotidine, aspirin, montelukast, Flomax. PHYSICAL EXAMINATION: GENERAL: Patient in no distress. BP 129/75, RR 16, HR 70, weight 222 pounds, height 5 feet 11 inches, body mass index 30.9, temperature 98.2, oxygen saturation at room air 96%. Oropharynx: Extremely low position of soft palate, Mallampati 4. NECK: Supple, no JVD. Thyroid is not palpable. LUNGS: Clear to percussion and to auscultation. Good air exchange. No wheezing or rhonchi. HEART: S1, S2 regular. No murmurs, gallops, or rubs. ABDOMEN: Soft and nontender. Bowel sounds are present. No organomegaly appreciated. EXTREMITIES: No clubbing or cyanosis. WRAPPER DIPPER: Awake, alert, and oriented X3. Cranial nerves 2 to 7 intact. There is no fasciculation or atrophy. noted. No focal deficits observed. IMPRESSION: 1. Obstructive sleep apnea-hypopnea syndrome. Patient demonstrated great compliance with treatment benefitting from BiPAP therapy. Normal respiration on the BiPAP at the present time. 2. Atrial fibrillation. 3. Coronary artery disease, status post stent insertion. 4. Benign prostatic hypertrophy. 5. Asthma. 6. Status post total right knee replacement. 7. Very minimal obesity. Body mass index 30.9. PLAN: 1. Patient will continue to use PAP equipment every night for the whole night. 2. Sleep hygiene with regular time in bed for at least 7-1/2 to 8 hours. 3. Precautions related to driving. No driving if feeling sleepiness. 4. I will maintain all necessary prescription for PAP supplies including mask, tube, filters. 5. Watching weight. 6. Follow-up visit in one year or earlier if patient has any problems. The patient will be in [place] for part of the year. Ottoniel Morgan MD, PhD, FAASM Diplomat of [employer] Sleep Medicine Board of [place] [employer] Nurse Practitioner [facility] [place] MMODL / LIDIAN: [id number] /
== END ==
LOC: SLEEP 09:48
PROVIDERS: ATTEND Internal Medicine
DX: G47.33 Obstructive sleep apnea (adult) (pediatric) (principal); I48.91 Unspecified atrial fibrillation; I25.10 Atherosclerotic heart disease of native coronary artery without angina pectoris; Z95.5 Presence of coronary angioplasty implant and graft; N40.0 Benign prostatic hyperplasia without lower urinary tract symptoms; J45.909 Unspecified asthma, uncomplicated; Z96.651 Presence of right artificial knee joint; E66.9 Obesity, unspecified; Z68.30 Body mass index [BMI] 30.0-30.9, adult; Z99.89 Dependence on other enabling machines and devices; Z88.2 Allergy status to sulfonamides; Z87.891 Personal history of nicotine dependence

== ENCOUNTER → 2021-09-23 | Outpatient (CLI) | payer MEDICARE ==
--- NOTE | 2021-09-26 08:16 | US ---
EXAMINATION TYPE: US thyroid st tissue head/neck DATE OF EXAM: 09/23/2021 COMPARISON: Multiple US's, most recent dated 10/27/2020 CLINICAL HISTORY: E04.1 THYROID NODULE. GLAND SIZE: Right Lobe: 7.7 x 2.7 x 3.5 cm Overall Parenchyma: heterogenous Left Lobe: 5.9 x 2.2 x 3.2 cm Overall Parenchyma: heterogeneous Isthmus Thickness: 0.2 cm NODULES RIGHT: # of nodules measured on right: 2 1. 3.4 X 1.8 x 2.6 cm, mid lateral, solid or almost completely solid, isoechoic nodule, which is wi shalini than tall, with smooth margins, without echogenic foci. Prior size: 3.3 x 1.8 x 2.7 cm 2. 4.1 X 2.9 x 4.2 cm, lower mid, solid or almost completely solid, very hypoechoic nodule, which i s wider than tall, with smooth margins, without echogenic foci. Prior size: 5.1 x 2.9 x 4.2 cm LEFT: # of nodules measured on left: 1 1. 3.8 X 2.6 x 3.1 cm, lower mid, solid or almost completely solid, hypoechoic nodule, which is wid er than tall, with smooth margins, with echogenic foci. Prior size: 3.2 x 2.9 x 2.8 cm ISTHMUS: # of nodules measured in the isthmus: 0 Bilateral neck scanned, no evidence of lymphadenopathy. Heterogeneous enlarged thyroid with multiple nodules redemonstrated bilaterally. No significant chery e from prior. IMPRESSION: As above.
== END | disposition home or self-care (01) ==
LOC: RADUSWWP 13:23
PROVIDERS: ATTEND Otolaryngology
DX: E04.1 Nontoxic single thyroid nodule (principal); E04.2 Nontoxic multinodular goiter
CPT/HCPCS: 76536

== ENCOUNTER → 2022-10-19 | Outpatient (CLI) | payer MEDICARE ==
--- NOTE | 2022-10-19 11:18 | P.PN ---
Subjective DATE: 10/19/2022 FOLLOW UP VISIT. Patient with obstructive sleep apnea hypopnea syndrome return to sleep center for follow-up visit. Information from previous visit have been reviewed. Patient is using PAP equipment every night for the whole night, getting PAP supplies in time. The patient does not have significant problems with the mask, PAP unit and humidification. [place] sleepiness scale is 8, which is normal. I checked information from PAP unit. BPAP unit pressure maximal inspiratory pressure 19, minimal expiratory pressure 8, pressure-support is 4, average pressure 13/9 cm H2O. Usage is 100 % for more then 4 hours, average 9.3 hours per night. Leak is to l/m, which is in acceptable range. Apnea Hypopnea Index is 0.8, which is normal. MEDICATIONS:1. Furosemide 20 mg once a day 2. Losartan 50 mg once a day 3. Atorvastatin 80 mg once a day 4. Aspirin 81 mg once a day 5. Flomax During physical exam: GENERAL: A pleasant patient without any distress. VITAL SIGNS: BP 169/77, HR 72, RR 18 , weight 220, temperature 98.1, oxygen saturation at room air 95 % . HEENT: PERRLA, EOMI.low position of soft palate, Mallapati 4 . NECK: Supple. No JVD. LUNGS: Clear to percussion and to auscultation. Good air exchange. No wheezing or rhonchi. HEART: S1, S2 regular. ABDOMEN: Soft and nontender.[] EXTREMITIES: No clubbing or cyanosis. STUDIO COUCH FRAME BUILDER: Awake, alert, and oriented x3. No focal deficit. Impressions: 1. Obstructive sleep apnea-hypopnea syndrome. Patient demonstrated great compliance with treatment, benefiting from treatment. 2. Coronary artery disease status post stent insertion. 3. History of atrial fibrillation. 4. BPH. 5. History of asthma. 6. Status post right knee replacement. Plan: 1. Continue using PAP equipment every night for the whole night. 2. To change air filter at least 1-2 times per month. 3. PAP unit should stay lower then position of the head. 4. Advised patient to remove all remaining water from humidifier canister daily and make it dry after each usage. Refill canister with fresh distilled water before each usage. 5. Sleep hygiene with regular time in bed for at least 8 hours. 6. Precautions related to driving. No driving if feel any sleepiness. 7. I will maintain prescription for PAP supplies including mask, tube, filters. 8.Watching weight. 9. Follow up visit in 6 months or earlier if patient has any problems. Thank you very much for allowing me to participate in the management of your patient. Ottoniel Morgan MD, PhD, FAASM. Diplomat of [employer], Sleep Medicine Board by [employer] [facility]
== END ==
LOC: 3 N SLEEP 10:24
PROVIDERS: ATTEND Internal Medicine
DX: G47.33 Obstructive sleep apnea (adult) (pediatric) (principal); I25.10 Atherosclerotic heart disease of native coronary artery without angina pectoris; I48.91 Unspecified atrial fibrillation; J45.909 Unspecified asthma, uncomplicated; Z96.651 Presence of right artificial knee joint; Z95.5 Presence of coronary angioplasty implant and graft; N40.0 Benign prostatic hyperplasia without lower urinary tract symptoms; Z79.899 Other long term (current) drug therapy; Z99.89 Dependence on other enabling machines and devices; Z88.2 Allergy status to sulfonamides; Z87.891 Personal history of nicotine dependence; Z79.82 Long term (current) use of aspirin
CPT/HCPCS: 99212